=== PATIENT | male | born 1975 | race Caucasian/White ===

== ENCOUNTER 2017-06-16 18:52 | Emergency (ER) | payer SELFPAY ==
[~2017-06-16] VITALS: Ht 182.9 cm; Wt 83.9 kg
[2017-06-16 18:59] VITALS: BP 146/96
--- NOTE | 2017-06-16 19:05 | NUR ---
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
--- NOTE | 2017-06-16 19:13 | NUR ---
PT BIBA FOR C/O CHEST PAIN SUDDEN ONSET TODAY WHILE BEING BOOKED FROM PD. PT IS SLEEPING UPON FIRST CONTACT, AROUSABLE TO VOICE. DENIES N/V/DIZZINESS OR SOB. PT STATE HE HAS BEEN USING [facility] FOR PAST TWO DAYS, AND USUALLY GET CP AFTER USING [facility]. NAD NOTED/STATED OTHERWISE. PT PALCED ON ALL MONITORS, VS WNL. PENDING MD CAPELLAN
[2017-06-16 19:28] VITALS: BP 135/78
--- NOTE | 2017-06-16 19:28 | NUR ---
Patient discharged with v/s stable. Written and verbal after care instructions given and explained. Patient verbalized understanding. Ambulatory with steady gait. All questions addressed prior to discharge. Advised to follow up with PMD.
== END 2017-06-16 19:28 | disposition home or self-care (01) ==
LOC: MED 18:52
DX: Z02.89 Encounter for other administrative examinations (principal); R07.89 Other chest pain; R06.2 Wheezing
CPT/HCPCS: 99283

== ENCOUNTER 2023-02-25 04:36 | Emergency (ER) | payer SELFPAY ==
[~2023-02-25] VITALS: Ht 172.7 cm; Wt 79.4 kg
[2023-02-25 04:40] VITALS: BP 169/111; PULSE 77; RESP 17; TEMP 97.8; O2SAT 100
[2023-02-25] MEDS ORDERED: LISI2.5T12 PO (05:00)
[2023-02-25 05:18] VITALS: BP 162/98; PULSE 71; RESP 16; TEMP 98.2; O2SAT 97
== END 2023-02-25 05:18 ==
LOC: MED 04:36
DX: Z02.89 Encounter for other administrative examinations (principal); R03.0 Elevated blood-pressure reading, without diagnosis of hypertension
CPT/HCPCS: 99283

== ENCOUNTER 2023-04-02 12:10 | Emergency (ER) | payer SELFPAY ==
[~2023-04-02] VITALS: Ht 175.3 cm; Wt 77.1 kg
[2023-04-02 12:10] VITALS: BP 126/78; PULSE 130; RESP 24; O2SAT 98
[~2023-04-02 12:10] MED LIST: LISI2.5T12 PO
[2023-04-02] MEDS: NACL 0.9% 1,000 ML IV ONE ×3 (12:53→14:07)
[2023-04-02] MEDS: NALOXONE 0.4 MG/ML VIAL IVP ONE (12:57)
[2023-04-02] MEDS: ONDANSETRON 4 MG/2 ML VIAL IVP ONE (12:58)
[2023-04-02 13:27] LABS: BASOPHILS # (AUTO) 0.1 K/uL (0.00-0.22); BASOPHILS % (AUTO) 0.9 % (0.0-2.0); EOSINOPHILS # (AUTO) 0.3 K/uL (0-0.4); HEMATOCRIT 42.9 % (36-52); HEMOGLOBIN 14.6 g/dL (12.0-18.0); LYMPHOCYTES # (AUTO) 2.3 K/uL (2.0-11.5); LYMPHOCYTES % (AUTO) 33.1 % (20.5-51.1); MEAN CORPUSCULAR HEMOGLOBIN 31 pg (27-31); MEAN CORPUSCULAR HGB CONC 34 g/dL (33-37); MEAN CORPUSCULAR VOLUME 90.4 fL (80-94); MONOCYTES # (AUTO) 0.8 K/uL (0.8-1.0); MONOCYTES % (AUTO) 11.6 % (1.7-9.3); NEUTROPHILS # (AUTO) 3.5 K/uL (1.8-7.7); NEUTROPHILS % (AUTO) 50.4 % (42.2-75.2); PLATELET COUNT (AUTO) 205 K/uL (140-450); RED BLOOD CELL COUNT(AUTO) 4.74 MIL/uL (4.20-6.10); RED CELL DISTRIBUTION WIDTH 14.5 % (11.6-13.7); WHITE BLOOD COUNT (AUTO) 6.9 K/uL (4.8-10.8)
[2023-04-02 13:42] LABS: ANION GAP 28.1 (8-16); CALCIUM 9.1 mg/dL (8.5-10.1); CARBON DIOXIDE 15.4 mmol/L (21-32); CREATININE 1.5 mg/dL (0.6-1.3); POTASSIUM 3.5 mmol/L (3.5-5.1)
[2023-04-02 13:49] LABS: ALANINE AMINOTRANSFERASE 26 U/L (12-78); ALBUMIN 3.6 g/dL (3.4-5.0); ALCOHOL, BLOOD 8 mg/dL (<10); ALKALINE PHOSPHATASE 111 U/L (50-136); ASPARTATE AMINOTRANSFERASE 33 U/L (15-37); BILIRUBIN,DIRECT 0.2 mg/dL (0.0-0.3); CREATINE KINASE, TOTAL 385 U/L (39-308); TOTAL BILIRUBIN 0.8 mg/dL (0.0-1.0); TOTAL PROTEIN, SERUM 7.3 g/dL (6.4-8.2)
[2023-04-02 13:50] LABS: SALICYLATE < 2.8 mg/dL (2.8-20.0)
[2023-04-02 13:56] LABS: LACTIC ACID 13.7 mmol/L (0.4-2.0)
[2023-04-02] MEDS ORDERED: cefTRIAXone 1,000 MG VIAL ONE (14:08)
[2023-04-02 15:01] LABS: APPEARANCE,URINE CLEAR (CLEAR); BILIRUBIN,URINE NEGATIVE (NEGATIVE); BLOOD, URINE NEGATIVE (NEGATIVE); COLOR,URINE YELLOW (YELLOW); LEUKOCYTE ESTERASE ,URINE NEGATIVE (NEGATIVE); NITRITE, URINE NEGATIVE (NEGATIVE); PROTEIN,URINE NEGATIVE (NEGATIVE); UGLUCOSE NEGATIVE (NEGATIVE); UROBILINOGEN,URINE 0.2 EU/dL (0.2 - 1)
[2023-04-02 15:19] LABS: AMPHETAMINE, URINE POSITIVE ng/ml (NEG <=1000)
[2023-04-02 15:20] LABS: BARBITURATE, URINE NEGATIVE ng/ml (NEG <=200); BENZODIAZEPINE, URINE NEGATIVE ng/mL (NEG <=200); CANNABINOID, URINE NEGATIVE ng/mL (NEG <=50); COCAINE, URINE NEGATIVE ng/mL (NEG <=300); OPIATE, URINE NEGATIVE ng/mL (NEG <=2000); PHENCYCLIDINE SCREEN,URINE NEGATIVE ng/mL (NEG <=25)
[2023-04-02 16:04] VITALS: BP 128/78; PULSE 77; RESP 17; O2SAT 95
== END 2023-04-02 16:04 | disposition home or self-care (01) ==
LOC: MED 12:10
DX: G93.40 Encephalopathy, unspecified (principal); F19.10 Other psychoactive substance abuse, uncomplicated; E87.20 Acidosis, unspecified; N17.9 Acute kidney failure, unspecified; Z79.899 Other long term (current) drug therapy
CPT/HCPCS: 36415; 70450; 71045; 80048; 80076; 80305; 81003; 82550; 82553; 83605; 84484; 85025; 87040; 93005; 96361; 96365; 96375; 99285; G0480; G0482; J0696; J2310; J2405; J7030

== ENCOUNTER 2023-06-24 15:46 | Emergency (ER) | payer SELFPAY ==
[~2023-06-24] VITALS: Ht 172.7 cm; Wt 77.1 kg
[2023-06-24 15:53] VITALS: BP 156/106; PULSE 92; RESP 18; TEMP 98; O2SAT 99
[2023-06-24] MEDS ORDERED: ACET-10509 PO (16:29)
[2023-06-24] MEDS ORDERED: CEPH-588 PO (16:29)
[2023-06-24] MEDS ORDERED: SULF-58 PO (16:29)
[2023-06-24] MEDS: KETOROLAC 30 MG/ML VIAL IM ONE (16:31)
== END 2023-06-24 16:53 | disposition home or self-care (01) ==
LOC: MED 15:46
DX: L03.011 Cellulitis of right finger (principal); I10 Essential (primary) hypertension; Z79.899 Other long term (current) drug therapy
CPT/HCPCS: 29130; 90471; 90715; 96372; 99284; J1885

== ENCOUNTER 2023-08-11 05:55 | Emergency (ER) | payer OTHER ==
[~2023-08-11] VITALS: Ht 172.7 cm; Wt 77.1 kg
[2023-08-11 05:55] VITALS: BP 130/83; PULSE 65; RESP 17; TEMP 97.7; O2SAT 96
[~2023-08-11 05:55] MED LIST changes: +ACET-10509 PO; +CEPH-588 PO; +SULF-58 PO
[2023-08-11] MEDS ORDERED: KETOROLAC 30 MG/ML VIAL IM ONE (06:40)
[2023-08-11] MEDS: KETOROLAC 30 MG/ML VIAL IVP ONE (07:11)
[2023-08-11] MEDS: PROPOFOL 200 MG/20 ML VIAL IV ONE (07:58)
[2023-08-11] MEDS ORDERED: IBUP-2213 PO (08:00)
[2023-08-11] MEDS ORDERED: ACET-10509 PO (08:00)
[2023-08-11 10:35] VITALS: BP 121/78; PULSE 58; RESP 17; TEMP 97.2; O2SAT 100
== END 2023-08-11 10:35 | disposition home or self-care (01) ==
LOC: MED 05:55
DX: S53.124A Posterior dislocation of right ulnohumeral joint, initial encounter (principal); I10 Essential (primary) hypertension; Z79.1 Long term (current) use of non-steroidal anti-inflammatories (NSAID); Z79.899 Other long term (current) drug therapy; F15.10 Other stimulant abuse, uncomplicated; W01.0XXA Fall on same level from slipping, tripping and stumbling without subsequent striking against object, initial encounter; Y93.89 Activity, other specified; Y92.89 Other specified places as the place of occurrence of the external cause; Y99.8 Other external cause status
CPT/HCPCS: 25605; 73070; 96374; 99152; 99285; J1885; J2704